=== PATIENT | male | born 1970 | race African-American/Black ===

== ENCOUNTER 2019-09-27 08:55 | Observation (INO) | payer OTHER ==
[~2019-09-27] VITALS: Ht 167.6 cm; Wt 94.3 kg
[2019-09-27 09:51] VITALS: BP 150/69
[2019-09-27 21:30] VITALS: BP 131/80
[2019-09-28 06:33] VITALS: BP 125/73
[2019-09-28 07:14] LABS: BASOPHIL % 0 % (0-2); PLATELET COUNT 122 x10^3mcL (130-400); RED CELL DISTRIBUTION WIDTH 14.7 % (11.5-14.5)
[2019-09-28 07:23] LABS: CALCIUM 8.2 mg/dL (8.5-10.1); CARBON DIOXIDE 30.1 mmol/L (21-32); CHLORIDE SERUM 104 mmol/L (98-107); CREATININE SERUM 0.9 mg/dL (0.7-1.3); GFR1 > 60 mL/min; GLUCOSE SERUM 115 mg/dL (74-106); POTASSIUM SERUM 4.1 mmol/L (3.5-5.1); SODIUM SERUM 140 mmol/L (136-145)
[2019-09-28 07:59] VITALS: BP 120/80
[2019-09-28 10:57] VITALS: BP 120/80
== END 2019-09-28 13:15 | disposition home or self-care (01) ==
LOC: DS 08:55 → OR 10:30 → DS 10:30 → MU 17:01
PROVIDERS: ADMIT Orthopaedic Surgery; ATTEND Orthopaedic Surgery
DX: M17.12 Unilateral primary osteoarthritis, left knee (principal)
CPT/HCPCS: C1713; C1776; G0378; J0131; J0690; J1885; J2175; J2250; J2270; J2405; J2704; J3010; J3490; J7030; J7120; Q0092